=== PATIENT | male | born 1980 | race Caucasian/White ===

== ENCOUNTER 2016-07-23 19:21 | Emergency (ER) | payer SELFPAY ==
[2016-07-23 20:07] VITALS: BP 143/63; PULSE 90; TEMP 97.9
[2016-07-23] MEDS ORDERED: DIAZEPAM 5 MG TAB PO ONE (20:07)
[2016-07-23] MEDS ORDERED: OXYCODONE HCL 5 MG TABLET PO ONE (20:07)
[2016-07-23] MEDS ORDERED: PREDNISONE 20 MG TAB PO ONE (20:07)
[2016-07-23 20:08] VITALS: BMI 28.0
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
== END 2016-07-23 20:17 | disposition home or self-care (01) ==
LOC: EDMC 19:21
DX: S39.012A Strain of muscle, fascia and tendon of lower back, initial encounter (principal); X50.0XXA Overexertion from strenuous movement or load, initial encounter; Y99.0 Civilian activity done for income or pay
CPT/HCPCS: 99282; J3490